=== PATIENT | male | born 1970 | race Two or more races ===

== ENCOUNTER 2018-06-17 09:35 | Emergency (ER) | payer SELFPAY ==
[2018-06-17] MEDS ORDERED: MORPHINE SULFATE 10 MG/ML INJ IM ONE (10:21)
--- NOTE | 2018-06-17 10:24 | ER Document Report ---
ED General - General Chief Complaint: Ankle Pain Stated Complaint: FALL/ANKLE PAIN Time Seen by Provider: 06/17/18 10:06 Mode of Arrival: Ambulatory Information source: Patient, [facility] Records Notes: 36-year-old male with no reported past medical history presents via private vehicle from work with complaint of right foot and ankle pain that occurred after the patient fell off of a ladder just prior to arrival. Patient states that he landed onto his foot but denies any head or neck injury. He denies loss of consciousness. He was not able to ambulate independently after the fall but was able to crawl to a neighbors house to get help. Patient currently denies headache, nausea, neck pain, back pain, abdominal pain, chest pain. TRAVEL OUTSIDE OF THE [place] IN LAST 30 DAYS: No - HPI Onset: Just prior to arrival Onset/Duration: Sudden Quality of pain: Throbbing Severity: Moderate Pain Level: 3 Associated symptoms: denies: Chest pain, Nausea, Shortness of breath, Weakness Exacerbated by: Movement, Walking Relieved by: Remaining still Similar symptoms previously: No Recently seen / treated by doctor: No - Related Data Allergies/Adverse Reactions: No Known Allergies Allergy (Verified 06/17/18 09:43) Past Medical History - General Information source: Patient, [facility] Records - Social History Smoking Status: Never Smoker Frequency of alcohol use: None Drug Abuse: None Lives with: Family Family History: Reviewed & Not Pertinent Patient has suicidal ideation: No Patient has homicidal ideation: No - Medical History Medical History: Negative Review of Systems - Review of Systems Notes: REVIEW OF SYSTEMS: CONSTITUTIONAL : Denies fever, chills, or sweats. Denies recent illness. Denies weight loss, recent hospitalizations. EENT: Denies visual changes, eye pain. Denies sore throat, oral lesions, difficulty swallowing. CARDIOVASCULAR: Denies chest pain. Denies palpitations. Denies lower extremity edema. RESPIRATORY: Denies cough. Denies shortness of breath, wheezing. GASTROINTESTINAL: Denies abdominal pain or distention. Denies nausea, vomiting , or diarrhea. Denies blood in vomitus, stools, or per rectum. Denies black, tarry stools. Denies constipation. GENITOURINARY: Denies difficulty urinating, painful urination, frequency, blood in urine, testicular pain or penile discharge. MUSCULOSKELETAL: Denies back or neck pain or stiffness. SKIN: Denies rash, lesions or sores. HEMATOLOGIC : Denies easy bruising or bleeding. LYMPHATIC: Denies swollen glands. NEUROLOGICAL: Denies confusion or altered mental status. Denies loss of consciousness. Denies dizziness or lightheadedness. Denies headache. Denies weakness or paralysis. Denies problems difficulty with ambulation, slurred speech. Denies sensory loss, numbness, or tingling. Denies seizures. PSYCHIATRIC: Denies anxiety or stress. Denies depression, suicidal ideation, or Physical Exam - Vital signs Vitals: Temp Pulse Resp BP Pulse Ox 98.1 F 66 20 136/90 H 98 06/17/18 09:42 06/17/18 09:42 06/17/18 09:42 06/17/18 09:42 06/17/18 09:42 - Notes Notes: PHYSICAL EXAMINATION: GENERAL: Well-appearing, well-nourished and in no acute distress. GCS 15 HEAD: Atraumatic, normocephalic. EYES: Pupils equal round and reactive to light, extraocular movements intact, sclera anicteric, conjunctiva are normal. ENT: Nares patent, oropharynx clear without exudates. Moist mucous membranes. No hemanotympanum . No blood in nares. No dental fracture NECK: Normal range of motion, supple without lymphadenopathy. Trachea midline LUNGS: Breath sounds clear to auscultation bilaterally and equal. No wheezes rales or rhonchi. HEART: Regular rate and rhythm without murmurs. Pulses intact all throughout. ABDOMEN: Soft, nontender, nondistended abdomen. No guarding, no rebound. No masses appreciated. No midline spinal tenderness, step-off, deformity Musculoskeletal: Normal range of motion, no pitting or edema. No cyanosis. Hip non tender, stable. Right foot-significant swelling, obvious deformity of the calcaneus diffusely tender DP pulse intact, PT pulse intact. Patient able to wiggle his toes. Sensation intact. NEUROLOGICAL: Cranial nerves grossly intact. Normal speech, normal gait. Normal sensory, motor, and reflex exams. PSYCH: Normal mood, normal affect. SKIN: Warm, No active bleeding Course - Re-evaluation Re-evalutation: Ankle X-Ray 06/17/18 00:00 IMPRESSION: 1. There are comminuted fractures of the body of the right calcaneus which likely extend anteriorly to involve the articular facets. Consider CT to more sensitively evaluate fracture anatomy. 2. The right ankle mortise is intact. 3. No fracture or dislocation of the midfoot or forefoot. Foot X-Ray 06/17/18 00:00 IMPRESSION: 1. There are comminuted fractures of the body of the right calcaneus which likely extend anteriorly to involve the articular facets. Consider CT to more sensitively evaluate fracture anatomy. 2. The right ankle mortise is intact. 3. No fracture or dislocation of the midfoot or forefoot. Lower Extremity CT 06/17/18 10:53 IMPRESSION: Comminuted depressed fracture of calcaneus. Small avulsion fracture posterior talus. 48-year-old male presents after falling off of a ladder with complaint of right foot and ankle pain. Vital signs reviewed and within normal limits upon arrival. Patient has no other evidence of trauma including cephalohematoma, midline tenderness of the spine, abrasions, ecchymosis. Right foot and ankle are swollen, with obvious deformity but with good cap refill, sensation. Patient found to have a comminuted fracture of the calcaneus with a small avulsion fracture of the posterior talus. Patient was given IM Dilaudid for pain. Discussed CT and x-ray findings with the patient. He does understand that he is to stay in the splint and not bear any weight until seen by orthopedic surgery. He was also advised to elevate whenever possible. Patient encouraged to return with worsening pain, tightness of his splint. At this time patient has no evidence of compartment syndrome. Patient was placed in the posterior short leg splint and a bulky dressing was placed. Patient provided crutches and pain medication. Ortho follow-up instructions given. Patient was evaluated and treated as appropriate for the patient's presenting symptoms and complaint, with consideration of any critical or life threatening conditions that may be associated with their obtained history and exam as noted above. All results were discussed with patient and patient provided copies of his imaging to bring to orthopedic surgery. Patient provided the opportunity to ask questions, and express concerns. Patient was educated on treatments based on their presumed diagnosis as noted above. At this time we will discharge the patient with return precautions and follow-up recommendations. Verbal discharge instructions given a the bedside. Medication warnings reviewed. Patient is in agreement with this plan and has verbalized understanding of return precautions. After careful consideration I feel that that patient can be safely discharged from the emergency department, they were advised to followup with a primary care physician in 2-3 days. Dictation on this chart was performed using voice recognition software and may result in unintended grammatical, spelling, syntax or errors. 06/17/18 13:[address] Espinosa orthopedic surgeon on-call who recommends bulky dressing, nonweightbearing and follow-up in the office in 3 days. 06/17/18 22:25 - Vital Signs Vital signs: Temp Pulse Resp BP Pulse Ox 98.0 F 78 19 124/74 100 06/17/18 14:02 06/17/18 14:02 06/17/18 14:02 06/17/18 14:02 06/17/18 14:02 06/17/18 22:24 48-year-old male presents after falling off of a ladder with complaint of right foot and ankle pain. - Diagnostic Test Radiology reviewed: Image reviewed, Reports reviewed Procedures - Joint Reduction/Fracture Care Right Foot Time completed: 13:07 Consent obtained: Yes Conscious sedation: No Fracture: Closed Manipulation comment: Patient placed in a bulky posterior short leg splint Post-reduction x-ray: Joint not reduced Discharge - Discharge Clinical Impression: Elevated blood pressure reading Calcaneus fracture, right Qualifiers: Encounter type: initial encounter Calcaneus location: body Fracture type: closed Fracture alignment: nondisplaced Qualified Code(s): S92.014A - Nondisplaced fracture of body of right calcaneus, initial encounter for closed fracture Fracture, talus closed Qualifiers: Encounter type: initial encounter Fracture morphology: avulsion Fracture alignment: nondisplaced Laterality: right Qualified Code(s): S92.154A - Nondisplaced avulsion fracture (chip fracture) of right talus, initial encounter for closed fracture Fall Qualifiers: Encounter type: initial encounter Qualified Code(s): W19.XXXA - Unspecified fall, initial encounter Condition: Good Disposition: HOME, SELF-CARE Instructions: Foot Fracture ([facility]), Fracture Calcaneus ([facility]) Additional Instructions: You must stay in your splint until seen by orthopedic surgery. Do not weight- bear at all onto this foot. Elevate consistently whenever possible. Please follow-up with orthopedic surgery in the next 3 days. Along with the [place] you can take Motrin 600 mg every 6 hours. Ice the foot whenever possible. Follow up with your [id number] hours for further care or return to the ED IMMEDIATELY if symptoms worsen or you have any concerns. If you cannot afford to follow up with your primary care physician a list of low cost clinics have been provided at the end of your discharge papers as well. Most prescribed medications have multiple side effects. The safest thing to do is when filling your prescription speak to your pharmacist regarding possible interactions with your normal home medications and over the counter medications such as Ibuprofen, Tylenol, Benadryl. If you experience any symptoms that cause you discomfort or concern you should discontinue the medication immediately and return to the emergency room or call your primary care physician. Prescriptions: Hydrocodone/Acetaminophen [[place] 5-325 mg Tablet] 1 tab PO Q6H #15 tablet Ibuprofen [Motrin 600 Mg Tablet] 600 mg PO TID #15 tablet Forms: Elevated Blood Pressure Referrals: WALLACE MATTHEW MD [ACTIVE STAFF] - Follow up tomorrow
--- NOTE | 2018-06-17 10:46 | RADIOLOGY REPORT (SQ) ---
EXAM DESCRIPTION: ANKLE RIGHT COMPLETE; FOOT RIGHT COMPLETE COMPLETED DATE/TIME: 06/17/2018 10:25 am REASON FOR STUDY: Fall off ladder, pain COMPARISON: None. NUMBER OF VIEWS: Three views. TECHNIQUE: AP, lateral, and oblique radiographic images acquired of the right foot and ankle. LIMITATIONS: None. FINDINGS: MINERALIZATION: Normal. BONES: There are comminuted fractures of the body of the right calcaneus which likely extend anterior ly to involve the articular facets. JOINTS: No effusions. SOFT TISSUES: Soft tissue swelling about the heel and ankle. OTHER: No other significant finding. IMPRESSION: 1. There are comminuted fractures of the body of the right calcaneus which likely extend anteriorly to involve the articular facets. Consider CT to more sensitively evaluate fracture anato my. 2. The right ankle mortise is intact. 3. No fracture or dislocation of the midfoot or forefoot. TECHNICAL DOCUMENTATION: JOB ID: [id number] [employer]- All Rights Reserved Reading location - IP/workstation name: [email or web address]
--- NOTE | 2018-06-17 10:46 | RADIOLOGY REPORT (SQ) ---
EXAM DESCRIPTION: ANKLE RIGHT COMPLETE; FOOT RIGHT COMPLETE COMPLETED DATE/TIME: 06/17/2018 10:25 am REASON FOR STUDY: Fall off ladder, pain COMPARISON: None. NUMBER OF VIEWS: Three views. TECHNIQUE: AP, lateral, and oblique radiographic images acquired of the right foot and ankle. LIMITATIONS: None. FINDINGS: MINERALIZATION: Normal. BONES: There are comminuted fractures of the body of the right calcaneus which likely extend anterior ly to involve the articular facets. JOINTS: No effusions. SOFT TISSUES: Soft tissue swelling about the heel and ankle. OTHER: No other significant finding. IMPRESSION: 1. There are comminuted fractures of the body of the right calcaneus which likely extend anteriorly to involve the articular facets. Consider CT to more sensitively evaluate fracture anato my. 2. The right ankle mortise is intact. 3. No fracture or dislocation of the midfoot or forefoot. TECHNICAL DOCUMENTATION: JOB ID: [id number] [employer]- All Rights Reserved Reading location - IP/workstation name: [email or web address]
--- NOTE | 2018-06-17 12:22 | RADIOLOGY REPORT (SQ) ---
EXAM DESCRIPTION: CT RT LOWER EXTREMITY WITHOUT COMPLETED DATE/TIME: 06/17/2018 11:24 am REASON FOR STUDY: Calcaneus fracture COMPARISON: None. TECHNIQUE: Axial imaging performed through the calcanei with reformatted coronal and sagittal imagin g windowed for bone and soft tissues. Images saved to PACS. 3D IMAGING: Were 3D images as MIP, SSD, or volume rendering performed at the work station? No All CT scanners at this facility use dose modulation, iterative reconstruction, and/or weight based d osing when appropriate to reduce radiation dose to as low as reasonably achievable (ALARA). [facility]: Dose Right [facility]: CareDose [facility]: Dose Right [facility]: Teradose 4D [facility]: [employer] LIMITATIONS: None. RADIATION DOSE: CT Rad equipment meets quality standard of care and radiation dose reduction techniq ues were employed. CTDIvol: 4.1 mGy. DLP: 106 mGy-cm. mGy. FINDINGS: SOFT TISSUES: No obvious swelling or foreign body. BONES: Comminuted depressed fracture of the mid calcaneus extending anteriorly into the anterior process of the calcaneus and anterior facet of the calcaneus. Fractures extend to the sinus tarsi and to sustentacular talci. Fractures extend posteriorly into subtalar joint, the high school sports coach ior facet of the calcaneus ,and calcaneal tuberosity. Avulsion fracture from the posterior process o f the talus. OTHER: Soft tissue edema noted. IMPRESSION: Comminuted depressed fracture of calcaneus. Small avulsion fracture posterior talus. TECHNICAL DOCUMENTATION: JOB ID: [id number] Quality ID # [id number]: Final reports with documentation of one or more dose reduction techniques (e.g., Au tomated exposure control, adjustment of the mA and/or kV according to patient size, use of iterative reconstruction technique) 2010 [employer]- All Rights Reserved Reading location - IP/workstation name: [email or web address]
[2018-06-17] MEDS ORDERED: OXYCODONE-ACETAMINOPHEN 5-325 MG TABLET PO ONE (13:07)
[2018-06-17 14:02] VITALS: BP 124/74
== END 2018-06-17 14:04 | disposition home or self-care (01) ==
LOC: ER 09:35
DX: S92.014A Nondisplaced fracture of body of right calcaneus, initial encounter for closed fracture (principal); S92.154A Nondisplaced avulsion fracture (chip fracture) of right talus, initial encounter for closed fracture; M79.671 Pain in right foot; M25.571 Pain in right ankle and joints of right foot; W11.XXXA Fall on and from ladder, initial encounter; Y99.0 Civilian activity done for income or pay; R03.0 Elevated blood-pressure reading, without diagnosis of hypertension
CPT/HCPCS: 99284; 96372; 73610; 73630; 73700; 29515; J2270